=== PATIENT | female | born 1935 | race Hispanic/Latino ===

== ENCOUNTER → 2017-11-03 | Outpatient (CLI) | payer MEDICARE ==
[~2017-11-03] MED LIST: AMLO5TAB4 PO; ASPI-555 PO; ATOR10 PO; CALC-190 PO; CHOL200013 PO; HUM10VIA6 SQ; LEVO500T2 PO; LIDOCAINE/PRILOCAINE CREAM 5GM TUBE TP ONE; LISI-613 PO; METO-408 PO
[2017-11-03 14:55] VITALS: BP 139/80
== END | disposition home or self-care (01) ==
LOC: WHH 13:00
PROVIDERS: ATTEND Family Medicine
DX: E11.622 Type 2 diabetes mellitus with other skin ulcer (principal); L89.323 Pressure ulcer of left buttock, stage 3; L89.310 Pressure ulcer of right buttock, unstageable; L98.411 Non-pressure chronic ulcer of buttock limited to breakdown of skin; I25.10 Atherosclerotic heart disease of native coronary artery without angina pectoris; I10 Essential (primary) hypertension; F03.90 Unspecified dementia, unspecified severity, without behavioral disturbance, psychotic disturbance, mood disturbance, and anxiety; E78.5 Hyperlipidemia, unspecified; Z87.891 Personal history of nicotine dependence; Z95.0 Presence of cardiac pacemaker; Z88.0 Allergy status to penicillin
CPT/HCPCS: 11042; A6197; A6213; J3490

== ENCOUNTER → 2017-11-17 | Outpatient (CLI) | payer MEDICARE ==
[~2017-11-17] MED LIST changes: -LIDOCAINE/PRILOCAINE CREAM 5GM TUBE TP ONE
[2017-11-17 15:20] VITALS: BP 149/54
== END | disposition home or self-care (01) ==
LOC: WHH 13:45
PROVIDERS: ATTEND Family Medicine
DX: E11.622 Type 2 diabetes mellitus with other skin ulcer (principal); L89.310 Pressure ulcer of right buttock, unstageable; L98.411 Non-pressure chronic ulcer of buttock limited to breakdown of skin; I25.10 Atherosclerotic heart disease of native coronary artery without angina pectoris; I10 Essential (primary) hypertension; F03.90 Unspecified dementia, unspecified severity, without behavioral disturbance, psychotic disturbance, mood disturbance, and anxiety; E78.5 Hyperlipidemia, unspecified; Z87.891 Personal history of nicotine dependence; Z95.0 Presence of cardiac pacemaker; Z88.0 Allergy status to penicillin
CPT/HCPCS: 11042; 82948; A6213

== ENCOUNTER → 2017-11-24 | Outpatient (CLI) | payer MEDICARE ==
[~2017-11-24] MED LIST changes: +HONEY 1 APPL/ML TUBE TP ONE; +LIDOCAINE/PRILOCAINE CREAM 5GM TUBE TP ONE
[2017-11-24 15:48] VITALS: BP 137/61
== END | disposition home or self-care (01) ==
LOC: WHH 14:00
PROVIDERS: ATTEND Family Medicine
DX: E11.622 Type 2 diabetes mellitus with other skin ulcer (principal); L89.313 Pressure ulcer of right buttock, stage 3; L98.411 Non-pressure chronic ulcer of buttock limited to breakdown of skin; I25.10 Atherosclerotic heart disease of native coronary artery without angina pectoris; I10 Essential (primary) hypertension; F03.90 Unspecified dementia, unspecified severity, without behavioral disturbance, psychotic disturbance, mood disturbance, and anxiety; E78.5 Hyperlipidemia, unspecified; Z87.891 Personal history of nicotine dependence; Z95.0 Presence of cardiac pacemaker; Z88.0 Allergy status to penicillin
CPT/HCPCS: 11042; A6196; J3490

== ENCOUNTER → 2017-12-01 | Outpatient (CLI) | payer MEDICARE ==
[~2017-12-01] MED LIST changes: -HONEY 1 APPL/ML TUBE TP ONE
[2017-12-01 15:05] VITALS: BP 148/71
== END | disposition home or self-care (01) ==
LOC: WHH 13:45
PROVIDERS: ATTEND Family Medicine
DX: E11.622 Type 2 diabetes mellitus with other skin ulcer (principal); L89.313 Pressure ulcer of right buttock, stage 3; L98.411 Non-pressure chronic ulcer of buttock limited to breakdown of skin; I25.10 Atherosclerotic heart disease of native coronary artery without angina pectoris; I10 Essential (primary) hypertension; F03.90 Unspecified dementia, unspecified severity, without behavioral disturbance, psychotic disturbance, mood disturbance, and anxiety; E78.5 Hyperlipidemia, unspecified; Z87.891 Personal history of nicotine dependence; Z95.0 Presence of cardiac pacemaker; Z88.0 Allergy status to penicillin
CPT/HCPCS: 11042; A6197; J3490

== ENCOUNTER → 2017-12-08 | Outpatient (CLI) | payer MEDICARE ==
[2017-12-08 14:52] VITALS: BP 137/65
== END | disposition home or self-care (01) ==
LOC: WHH 14:00
PROVIDERS: ATTEND Family Medicine
DX: E11.622 Type 2 diabetes mellitus with other skin ulcer (principal); L89.313 Pressure ulcer of right buttock, stage 3; L98.411 Non-pressure chronic ulcer of buttock limited to breakdown of skin; I25.10 Atherosclerotic heart disease of native coronary artery without angina pectoris; I10 Essential (primary) hypertension; F03.90 Unspecified dementia, unspecified severity, without behavioral disturbance, psychotic disturbance, mood disturbance, and anxiety; E78.5 Hyperlipidemia, unspecified; Z87.891 Personal history of nicotine dependence; Z95.0 Presence of cardiac pacemaker; Z88.0 Allergy status to penicillin
CPT/HCPCS: 11042; A6196; J3490

== ENCOUNTER 2017-12-22 13:57 | Outpatient (CLI) | payer MEDICARE ==
[~2017-12-22 13:57] MED LIST changes: -LIDOCAINE/PRILOCAINE CREAM 5GM TUBE TP ONE
[2017-12-22 15:13] VITALS: BP 145/55
== END 2017-12-22 15:26 | disposition home or self-care (01) ==
LOC: WHH 13:57
PROVIDERS: ATTEND Family Medicine
DX: E11.622 Type 2 diabetes mellitus with other skin ulcer (principal); L89.323 Pressure ulcer of left buttock, stage 3; L89.313 Pressure ulcer of right buttock, stage 3; L98.411 Non-pressure chronic ulcer of buttock limited to breakdown of skin; I25.10 Atherosclerotic heart disease of native coronary artery without angina pectoris; I10 Essential (primary) hypertension; F03.90 Unspecified dementia, unspecified severity, without behavioral disturbance, psychotic disturbance, mood disturbance, and anxiety; E78.5 Hyperlipidemia, unspecified; E66.9 Obesity, unspecified; Z87.891 Personal history of nicotine dependence; Z95.0 Presence of cardiac pacemaker; Z88.0 Allergy status to penicillin
CPT/HCPCS: G0463

== ENCOUNTER 2018-02-13 15:58 | Emergency (ER) | payer MEDICARE | END 2018-02-13 18:00 | disposition home or self-care (01) | LOC: EDH 15:58 | DX: S70.01XA Contusion of right hip, initial encounter (principal); S89.81XA Other specified injuries of right lower leg, initial encounter; I25.10 Atherosclerotic heart disease of native coronary artery without angina pectoris; E11.9 Type 2 diabetes mellitus without complications; I10 Essential (primary) hypertension; E78.5 Hyperlipidemia, unspecified; Z79.4 Long term (current) use of insulin; W01.0XXA Fall on same level from slipping, tripping and stumbling without subsequent striking against object, initial encounter; Y93.01 Activity, walking, marching and hiking; Y92.89 Other specified places as the place of occurrence of the external cause; Y99.8 Other external cause status | CPT/HCPCS: 73502; 73562 ==

== ENCOUNTER 2019-01-01 06:15 | Day surgery (SDC) | payer MEDICARE ==
[2018-12-28 10:25] VITALS: BP 165/74
[2018-12-28 10:32] LABS: EOSINOPHILS % (AUTO) 4.4 % (0.0-8.0); HEMATOCRIT 37.3 % (36-48); LYMPHOCYTES % (AUTO) 25.2 % (21.0-51.0); MEAN CORPUSCULAR HEMOGLOBIN 27.2 pg (27.0-33.0); MEAN CORPUSCULAR HGB CONC 32.4 g/dL (32.0-36.0); MEAN CORPUSCULAR VOLUME 84.1 fL (79-99); NEUTROPHILS % (AUTO) 61.4 % (40.0-77.0); PLATELET COUNT (AUTO) 168 K/uL (130-400); RED BLOOD CELL COUNT(AUTO) 4.43 MIL/uL (4.00-5.50); RED CELL DISTRIBUTION WIDTH 13.3 % (11.0-15.5); WHITE BLOOD COUNT (AUTO) 7.2 K/uL (4.8-10.8)
[2018-12-28 10:45] LABS: POTASSIUM 4.4 mmol/L (3.5-5.1)
[2018-12-28 10:48] LABS: INR 0.99 (0.85-1.15); PARTIAL THROMBOPLASTIN TIME 26.9 SEC (26.3-35.5); PROTHROMBIN TIME 10.4 SEC (9.6-11.6)
[2019-01-01] VITALS (13 sets, daily range): BP systolic 122–162; BP diastolic 53–75
[~2019-01-01] VITALS: Ht 151.1 cm; Wt 59.6 kg
[~2019-01-01 06:15] MED LIST changes: -CHOL200013 PO; -LEVO500T2 PO
[2019-01-01] MEDS ORDERED: SODIUM CHLORIDE 0.9% 1000ML 1,000 ML IV ONE ×2 (06:36→07:49)
[2019-01-01] MEDS ORDERED: MEPERIDINE-PF 25 MG/ML SYG ONE ×2 (10:03→10:26)
[2019-01-01] MEDS ORDERED: BUPIVACAINE/PF 0.25% 30ML VIAL IJ ONE (10:03)
[2019-01-01] MEDS ORDERED: LIDOCAINE HCL 1% MDV 50ML VIAL ONE (10:03)
[2019-01-01] MEDS ORDERED: VANCOMYCIN 1GM+NS 250ML 500 ML IV ONE (10:03)
[2019-01-01] MEDS ORDERED: MIDAZOLAM HCL 1 MG/ML 2ML VIAL ONE ×2 (10:03→10:26)
[2019-01-01] MEDS ORDERED: OCTYL 2-CYANOACRYLATE 1 EACH TP ONE (10:55)
[2019-01-01] MEDS ORDERED: ACETAMINOPHEN-CODEINE 300/30MG TAB PO PRN (11:15)
[2019-01-01] MEDS ORDERED: ONDANSETRON HCL 4 MG/2 ML VIAL IV PRN (11:15)
[2019-01-01] MEDS ORDERED: DEXTROSE 50%-WATER 50 ML DISP.SYRIN IV PRN (11:15)
[2019-01-01] MEDS ORDERED: INSULIN HUMULIN R 100 UNIT/ML 3ML SQ SCH (11:30)
--- NOTE | 2019-01-01 11:35 | NUR ---
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 Pressure dressing to left chest in place s any evidence of bleeding. Some swelling noted, but prosthetics lab technician aware.
[2019-01-01] MEDS ORDERED: DOXYCYCLINE HYCLATE 100 MG TABLET PO SCH (15:00)
--- NOTE | 2019-01-01 15:30 | NUR ---
Pt's pressure dressing removed. Swelling to site remains. However no evidence of bleeding noted. DANYA Childers called. Alvarado called back at 15:40. Reported swelling to DANYA Childers and asked if he wanted me to reapply the pressure dressing. Alvarado stated not to reapply the pressure dressing and to leave it as is. Pt's sister instructed to keep an eye on the swelling and that if it gets worse or doesn't improve to call the office. If no one is available at the office, bring her back to the hospital to be evaluated. Pt sent home with ice. Sister instructed to reapply the ice for 20 mins at a time several times a day, keeping a cloth between the incision and the ice.
--- NOTE | 2019-01-01 16:20 | NUR ---
Pt discharged home. Pt tolerating fluids/solids well. Pt ambulating well. Pt denies any severe pain, nausea or dizziness. Pt's site shows no evidence of further swelling. Pt's sister encouraged to continue applying ice as directed and to call MD if swelling increasing or site showed any evidence of bleeding. Addendum: 01/01/19 at 1715 by OSBALDO HER RN RN Site remains s any tenderness, as I examined it thoroughly without the pt complaining.
--- NOTE | 2019-01-01 17:43 | NUR ---
Prescription sent home with pt's sister. Sister instructed to have her take one tablet every 12 hours for 5 days starting tomorrow morning. Sister reported understanding. No further questions at this time.
== END 2019-01-01 16:20 | disposition home or self-care (01) ==
LOC: DAH 06:15
PROVIDERS: ATTEND Internal Medicine Cardiovascular Disease
DX: T82.897A Other specified complication of cardiac prosthetic devices, implants and grafts, initial encounter (principal); Y83.8 Other surgical procedures as the cause of abnormal reaction of the patient, or of later complication, without mention of misadventure at the time of the procedure; I10 Essential (primary) hypertension; E11.9 Type 2 diabetes mellitus without complications; Z88.0 Allergy status to penicillin; Z98.890 Other specified postprocedural states; Z88.8 Allergy status to other drugs, medicaments and biological substances; Z79.82 Long term (current) use of aspirin; Z79.899 Other long term (current) drug therapy; Z79.4 Long term (current) use of insulin; Z98.49 Cataract extraction status, unspecified eye; Z83.3 Family history of diabetes mellitus; Z82.49 Family history of ischemic heart disease and other diseases of the circulatory system
CPT/HCPCS: 33222; 36415; 80048; 82948 ×2; 85025; 85610; 85730; 93005; 96372; A4215; A4216; A4221; A4222; A4223 ×3; A4606; A4663; J2175 ×2; J2250 ×2; J3370; J3490 ×2; J7030 ×2; 99156; 99157

== ENCOUNTER 2019-03-20 12:45 | Emergency (ER) | payer MEDICARE ==
[2019-03-20 13:58] LABS: BASOPHILS % (AUTO) 0.3 % (0.0-5.0); EOSINOPHILS % (AUTO) 0.8 % (0.0-8.0); HEMATOCRIT 35.1 % (36-48); LYMPHOCYTES % (AUTO) 12.9 % (21.0-51.0); MEAN CORPUSCULAR HEMOGLOBIN 26.2 pg (27.0-33.0); MEAN CORPUSCULAR HGB CONC 30.8 g/dL (32.0-36.0); MEAN CORPUSCULAR VOLUME 85.2 fL (79-99); NEUTROPHILS % (AUTO) 79.8 % (40.0-77.0); PLATELET COUNT (AUTO) 215 K/uL (130-400); RED BLOOD CELL COUNT(AUTO) 4.12 MIL/uL (4.00-5.50); RED CELL DISTRIBUTION WIDTH 13.2 % (11.0-15.5); WHITE BLOOD COUNT (AUTO) 9.9 K/uL (4.8-10.8)
[2019-03-20 14:07] LABS: CREATININE 1.1 mg/dL (0.5-1.5); POTASSIUM 4.1 mmol/L (3.5-5.1)
== END 2019-03-20 15:53 | disposition home or self-care (01) ==
LOC: EDH 12:45
DX: S40.011A Contusion of right shoulder, initial encounter (principal); E04.1 Nontoxic single thyroid nodule; E11.9 Type 2 diabetes mellitus without complications; E78.5 Hyperlipidemia, unspecified; I10 Essential (primary) hypertension; I25.10 Atherosclerotic heart disease of native coronary artery without angina pectoris; Z79.899 Other long term (current) drug therapy; W18.39XA Other fall on same level, initial encounter; Y93.01 Activity, walking, marching and hiking; Y92.89 Other specified places as the place of occurrence of the external cause; Y99.8 Other external cause status
CPT/HCPCS: 36415; 70450; 71045; 72125; 73030; 80048; 82550; 84484; 85025; 93005

== ENCOUNTER 2020-07-30 15:02 | Emergency (ER) | payer MEDICARE ==
[~2020-07-30] VITALS: Ht 149.9 cm; Wt 58.5 kg
[~2020-07-30 15:02] MED LIST changes: -ASPI-555 PO; +ASPI-556 PO; -LISI-613 PO; +LISI20TA24 PO
[2020-07-30] MEDS ORDERED: MORPHINE 2 MG SYG IVP SCH (15:30)
[2020-07-30] MEDS ORDERED: ONDANSETRON 4MG INJ IVP SCH (15:30)
[2020-07-30] MEDS ORDERED: LACTATED RINGERS 1000ML 1,000 ML IV SCH (15:30)
[2020-07-30 16:14] LABS: BASOPHILS % (AUTO) 0.6 % (0.0-5.0); EOSINOPHILS % (AUTO) 4.6 % (0.0-8.0); HEMATOCRIT 32.5 % (36-48); LYMPHOCYTES % (AUTO) 29.7 % (21.0-51.0); MEAN CORPUSCULAR HEMOGLOBIN 27.6 pg (27.0-33.0); MEAN CORPUSCULAR HGB CONC 30.2 g/dL (32.0-36.0); MEAN CORPUSCULAR VOLUME 91.5 fL (79-99); MONOCYTES % (AUTO) 9.2 % (3.0-13.0); NEUTROPHILS % (AUTO) 55.7 % (40.0-77.0); PLATELET COUNT (AUTO) 154 K/uL (130-400); RED BLOOD CELL COUNT(AUTO) 3.55 MIL/uL (4.00-5.50); RED CELL DISTRIBUTION WIDTH 14.1 % (11.0-15.5); WHITE BLOOD COUNT (AUTO) 5.2 K/uL (4.8-10.8)
[2020-07-30 16:23] LABS: CREATININE 0.8 mg/dL (0.5-1.5); POTASSIUM 3.3 mmol/L (3.5-5.1)
[2020-07-30] MEDS ORDERED: IOHEXOL-350 75 ML VIAL IV ONE (16:25)
[2020-07-30 16:28] LABS: ALBUMIN 3.1 g/dL (3.5-5.0); BILIRUBIN,TOTAL 0.3 mg/dL (0.2-1.0)
[2020-07-30 16:53] VITALS: BP 180/67
[2020-07-30] MEDS ORDERED: POTASSIUM BICARB/CIT AC 25 MEQ TABLET.EFF PO SCH (18:00)
[2020-07-30 18:14] VITALS: BP 174/51
[2020-07-30] MEDS ORDERED: POLY17PO4 PO (18:52)
== END 2020-07-30 19:06 | disposition home or self-care (01) ==
LOC: EDH 15:02
DX: K59.00 Constipation, unspecified (principal); E87.6 Hypokalemia; I10 Essential (primary) hypertension; E11.9 Type 2 diabetes mellitus without complications; E86.0 Dehydration; F03.90 Unspecified dementia, unspecified severity, without behavioral disturbance, psychotic disturbance, mood disturbance, and anxiety; Z79.4 Long term (current) use of insulin; Z79.82 Long term (current) use of aspirin; Z79.899 Other long term (current) drug therapy; Z88.0 Allergy status to penicillin
CPT/HCPCS: 36415; 74177; 80053; 83690; 84484; 85025; 93005; 96361; 96374; 96375; 99285; J2405; Q9967